=== PATIENT | female | born 1965 | race Caucasian/White ===

== ENCOUNTER 2018-03-28 19:34 | Emergency (ER) | payer MEDICAID ==
[~2018-03-28] VITALS: Ht 165.1 cm; Wt 93.0 kg
[~2018-03-28 19:34] MED LIST: BACL10TA PO; CETI-136 PO; FLUT50DI3 IH; LANS30CA56 PO; LEVO150T PO; LISI-600 PO; NIT10P TD; ROSU20TA PO
[2018-03-28 19:41] VITALS: BP 136/103
[2018-03-28] MEDS ORDERED: ASPI81TA52 PO (20:33)
[2018-03-28 20:39] LABS: INR 0.9 INR; PARTIAL THROMBOPLASTIN TIME 26 SECONDS (22-32); PROTHROMBIN TIME 9.4 SECONDS (9.0-12.0)
[2018-03-28 20:42] LABS: ALANINE AMINOTRANSFERASE 25 U/L (12-78); ALBUMIN 3.8 G/DL (3.4-5.0); ALBUMIN/GLOBULIN RATIO 0.9 (1.1-1.5); ALKALINE PHOSPHATASE 98 IU/L (46-116); ANION GAP 8 (8-16); BILIRUBIN,TOTAL 0.3 MG/DL (0.1-1.0); BLOOD UREA NITROGEN 13 MG/DL (7-18); BUN/CREATININE RATIO 14.3 (6.6-38.0); CALCIUM 8.9 MG/DL (8.5-10.1); CHLORIDE 99 MMOL/L (99-107); CREATININE 0.91 MG/DL (0.40-0.90); GLUCOSE 117 MG/DL (70-104); SODIUM 132 MMOL/L (135-145); TOTAL CARBON DIOXIDE 24.8 MMOL/L (24-32); TOTAL PROTEIN 7.9 G/DL (6.4-8.2); eGFR 65 ML/MIN
[2018-03-28 20:43] LABS: ASPARTATE AMINO TRANSFERASE 24 U/L (10-37); POTASSIUM 4.4 MMOL/L (3.5-5.1)
[2018-03-28 21:16] LABS: BASOPHILS # (AUTO) 0.1 X10'3 (0-0.2); BASOPHILS % (AUTO) 0.6 % (0-1); EOSINOPHILS # (AUTO) 0.6 X10'3 (0-0.9); EOSINOPHILS % (AUTO) 4.9 % (0-6); HEMATOCRIT 41.4 % (35.0-45.0); HEMOGLOBIN 14.3 g/dl (12.0-16.0); LYMPHOCYTES # (AUTO) 3.2 X10'3 (1.1-4.8); LYMPHOCYTES % (AUTO) 25.8 % (21-51); MEAN CORPUSCULAR HEMOGLOBIN 29.8 PG (27.0-31.0); MEAN CORPUSCULAR HGB CONC 34.4 % (33.0-36.5); MEAN CORPUSCULAR VOLUME 86.5 FL (78-98); MEAN PLATELET VOLUME 8.3 FL (7.4-10.4); MONOCYTES # (AUTO) 0.7 X10'3 (0-0.9); MONOCYTES % (AUTO) 5.4 % (2-12); NEUTROPHILS # (AUTO) 7.9 X10'3 (1.8-7.7); NEUTROPHILS % (AUTO) 63.3 % (42-75); PLATELET COUNT 314 X10'3 (140-440); RED BLOOD COUNT 4.78 X10'6 (4.20-5.60); RED CELL DISTRIBUTION WIDTH 14.6 % (11.5-14.5); WHITE BLOOD COUNT 12.5 X10'3 (4.5-11.0)
[2018-03-28 21:54] LABS: CLARITY,URINE SLIGHTLY CLOUDY (Clear); COLOR,URINE YELLOW (Yellow); GLUCOSE, URINE NEGATIVE (Neg); KETONES,URINE NEGATIVE (Neg); LEUKOCYTE ESTERASE ,URINE TRACE (Neg); NITRITES, URINE NEGATIVE (Neg); OCCULT BLOOD,URINE LARGE (Neg); PH,URINE 5.5 (4.8-8.0); PROTEIN,URINE NEGATIVE (Neg); UROBILINOGEN,URINE 0.2 E.U/dL (0.2-1.0)
[2018-03-28 21:56] LABS: UA COLLECTION TYPE CLN CATCH MIDSTREAM; URINE AMPHETAMINE SCREEN NEGATIVE (Neg); URINE BARBITUATE SCREEN NEGATIVE (Neg); URINE BENZODIAZEPINES SCREEN NEGATIVE (Neg); URINE CANNABINOID SCREEN POSITIVE (Neg); URINE COCAINE SCREEN NEGATIVE (Neg); URINE METHADONE SCREEN NEGATIVE (Neg); URINE OPIATE SCREEN NEGATIVE (Neg); URINE PHENCYCLIDINE SCREEN NEGATIVE (Neg)
[2018-03-28 22:05] LABS: BACTERIA,URINE 3+ /HPF (Neg); CAL OXALATE CRYSTALS 2+ /HPF (NEGATIVE); MUCUS STRANDS MODERATE /LPF (Neg); RBC,URINE 0-2 /HPF (0-2); SQUAMOUS EPITHELIAL CELL,UR MANY /LPF (FEW); WBC,URINE 0-4 /HPF (0-4)
== END 2018-03-28 22:19 | disposition home or self-care (01) ==
LOC: ER 19:35
DX: R55 Syncope and collapse (principal); R31.9 Hematuria, unspecified; R42 Dizziness and giddiness; R05 Cough; R73.03 Prediabetes; I25.10 Atherosclerotic heart disease of native coronary artery without angina pectoris; E78.00 Pure hypercholesterolemia, unspecified; I10 Essential (primary) hypertension; Z88.6 Allergy status to analgesic agent; Z79.899 Other long term (current) drug therapy; Z79.82 Long term (current) use of aspirin
CPT/HCPCS: 36415; 70450; 71045; 72125; 80053; 80305; 81001; 84484; 85025; 85610; 85730; 93005; 99285

== ENCOUNTER 2018-03-31 11:32 | Observation (INO) | payer MEDICAID ==
[~2018-03-31] VITALS: Ht 165.1 cm; Wt 98.3 kg
[~2018-03-31 11:32] MED LIST changes: +ASPI81TA52 PO
[2018-03-31 12:14] LABS: BASOPHILS # (AUTO) 0.1 X10'3 (0-0.2); BASOPHILS % (AUTO) 1.2 % (0-1); EOSINOPHILS # (AUTO) 0.4 X10'3 (0-0.9); EOSINOPHILS % (AUTO) 4.3 % (0-6); HEMATOCRIT 45.1 % (35.0-45.0); HEMOGLOBIN 15.3 g/dl (12.0-16.0); LYMPHOCYTES # (AUTO) 2.8 X10'3 (1.1-4.8); LYMPHOCYTES % (AUTO) 33.4 % (21-51); MEAN CORPUSCULAR HEMOGLOBIN 29.2 PG (27.0-31.0); MEAN CORPUSCULAR HGB CONC 33.8 % (33.0-36.5); MEAN CORPUSCULAR VOLUME 86.4 FL (78-98); MEAN PLATELET VOLUME 7.9 FL (7.4-10.4); MONOCYTES # (AUTO) 0.5 X10'3 (0-0.9); MONOCYTES % (AUTO) 5.8 % (2-12); NEUTROPHILS # (AUTO) 4.7 X10'3 (1.8-7.7); NEUTROPHILS % (AUTO) 55.3 % (42-75); PLATELET COUNT 333 X10'3 (140-440); RED BLOOD COUNT 5.22 X10'6 (4.20-5.60); RED CELL DISTRIBUTION WIDTH 14.4 % (11.5-14.5); WHITE BLOOD COUNT 8.4 X10'3 (4.5-11.0)
[2018-03-31 12:29] LABS: PARTIAL THROMBOPLASTIN TIME 26 SECONDS (22-32); PROTHROMBIN TIME 9.9 SECONDS (9.0-12.0)
[2018-03-31 12:30] LABS: ALANINE AMINOTRANSFERASE 23 U/L (12-78); ALBUMIN 3.7 G/DL (3.4-5.0); ALBUMIN/GLOBULIN RATIO 0.9 (1.1-1.5); ALKALINE PHOSPHATASE 91 IU/L (46-116); ANION GAP 11 (8-16); ASPARTATE AMINO TRANSFERASE 14 U/L (10-37); BILIRUBIN,TOTAL 0.3 MG/DL (0.1-1.0); BLOOD UREA NITROGEN 15 MG/DL (7-18); BUN/CREATININE RATIO 18.3 (6.6-38.0); CALCIUM 9.2 MG/DL (8.5-10.1); CHLORIDE 99 MMOL/L (99-107); CREATININE 0.82 MG/DL (0.40-0.90); GLUCOSE 131 MG/DL (70-104); POTASSIUM 3.6 MMOL/L (3.5-5.1); SODIUM 135 MMOL/L (135-145); TOTAL CARBON DIOXIDE 24.6 MMOL/L (24-32); TOTAL PROTEIN 7.8 G/DL (6.4-8.2); eGFR 73 ML/MIN
[2018-03-31] MEDS ORDERED: nitroGLYCERIN 0.4mg SUBLingual tab SL PRN ×2 (13:05→17:25)
[2018-03-31] MEDS ORDERED: magnesium hydroxide 30ml (MOM) UD suspension PO PRN ×2 (13:05→17:35)
[2018-03-31] MEDS ORDERED: morphine 2 MG/ML inj. syringe IV PRN ×2 (13:05)
[2018-03-31] MEDS ORDERED: ondansetron/PF 4mg/2ml inj IV PRN (13:05)
[2018-03-31] MEDS ORDERED: acetaminophen 325mg tablet PO PRN (13:05)
[2018-03-31] MEDS ORDERED: mag hydrox/Alum hydrox/simeth 30ml oral suspension PO PRN (13:05)
[2018-03-31] MEDS ORDERED: LEVO150T PO (13:08)
[2018-03-31] MEDS ORDERED: FURO-150 PO (13:09)
[2018-03-31] MEDS ORDERED: HYDR12.5 PO (13:10)
[2018-03-31] MEDS ORDERED: DULO20CA50 PO (13:11)
[2018-03-31] MEDS ORDERED: NITR0.4T51 SL (13:19)
[2018-03-31 14:16] LABS: HEMOGLOBIN A1C 6.5 % (4.5-6.2)
[2018-03-31 14:30] VITALS: BP 146/89
[2018-03-31] MEDS ORDERED: nitroGLYCERIN 0.4mg/hour patch TD PRN (17:25)
[2018-03-31] MEDS ORDERED: baclofen 10mg tablet PO PRN (17:25)
[2018-03-31] MEDS: normal saline 1000ml 1,000 ML IV SCH (17:56)
[2018-03-31] MEDS: docusate sod 100mg capsule PO SCH (19:38)
[2018-03-31 20:00] VITALS: BP_SYST 125; BP_SYST 130; BP_SYST 138; BP_DIAS 73; BP_DIAS 75; BP_DIAS 80
[2018-03-31 23:58] VITALS: BP 120/65
[2018-04-01 05:40] LABS: CHOL/HDL RATIO 5.6 (0.00-4.99); CHOLESTEROL 151 MG/DL (0-200); HDL CHOLESTEROL 27 MG/DL (35-60); LDL CHOLESTEROL 93 MG/DL (50-100); TRIGLYCERIDES 214 MG/DL (20-135)
[2018-04-01 07:00] VITALS: BP 130/77
[2018-04-01] MEDS ORDERED: levoTHYROXINE 75mcg tablet PO SCH (07:00)
[2018-04-01] MEDS ORDERED: pantoprazole 40mg Tablet.DR PO SCH (07:30)
[2018-04-01] MEDS: normal saline 1000ml 1,000 ML IV SCH (07:37)
[2018-04-01] MEDS ORDERED: enoxaparin 40mg/0.4ml syringe SUBCUT SCH (08:00)
[2018-04-01] MEDS ORDERED: atorvastatin 20mg tablet PO SCH (08:00)
[2018-04-01] MEDS ORDERED: duloxetine 20mg capsule.DR PO SCH (08:00)
[2018-04-01] MEDS ORDERED: aspirin 81mg tablet.DR PO SCH ×2 (08:00)
[2018-04-01] MEDS ORDERED: lisinopril 20mg tablet PO SCH (08:00)
[2018-04-01] MEDS ORDERED: HYDROchlorothiazide 12.5mg capsule PO SCH (08:00)
[2018-04-01 08:11] VITALS: BP_SYST 130; BP_SYST 133; BP_SYST 146; BP_DIAS 104; BP_DIAS 77; BP_DIAS 99
[2018-04-01] MEDS: docusate sod 100mg capsule PO SCH (09:34)
[2018-04-01 11:00] VITALS: BP 125/73
== END 2018-04-01 11:28 | disposition home or self-care (01) ==
LOC: ER 11:33 → ED HOLD 13:01 → SUR 3N 14:22
PROVIDERS: ADMIT Internal Medicine; ATTEND Internal Medicine
DX: R07.89 Other chest pain (principal); I25.10 Atherosclerotic heart disease of native coronary artery without angina pectoris; I10 Essential (primary) hypertension; E03.9 Hypothyroidism, unspecified; K21.9 Gastro-esophageal reflux disease without esophagitis; E78.5 Hyperlipidemia, unspecified; E11.9 Type 2 diabetes mellitus without complications; M79.7 Fibromyalgia; Z87.891 Personal history of nicotine dependence; Z95.5 Presence of coronary angioplasty implant and graft; Z98.82 Breast implant status; Z80.9 Family history of malignant neoplasm, unspecified
CPT/HCPCS: 36415; 71045; 80053; 80061; 83036; 84484; 85025; 85610; 85730; 87070; 93005; 96360; 96361; 99285; G0378; J7030; J1650

== ENCOUNTER 2018-04-21 12:06 | Outpatient (CLI) | payer MEDICAID ==
[2018-04-21] VITALS (18 sets, daily range): BP systolic 124–177; BP diastolic 65–99
[~2018-04-21 12:06] MED LIST changes: +DULO20CA50 PO; -FLUT50DI3 IH; +HYDR12.5 PO; +NITR0.4T51 SL
== END 2018-04-21 23:59 | disposition home or self-care (01) ==
LOC: CARD DIAG 12:06
PROVIDERS: ATTEND Physician Assistant
DX: R55 Syncope and collapse (principal); I10 Essential (primary) hypertension; E11.9 Type 2 diabetes mellitus without complications; Z79.82 Long term (current) use of aspirin; Z87.891 Personal history of nicotine dependence
CPT/HCPCS: 93660

== ENCOUNTER 2018-05-07 08:42 | Outpatient (CLI) | payer MEDICAID | END 2018-05-07 23:59 | disposition home or self-care (01) | LOC: RAD 08:42 | PROVIDERS: ATTEND Family Medicine | DX: R55 Syncope and collapse (principal); M79.7 Fibromyalgia; E03.9 Hypothyroidism, unspecified; I10 Essential (primary) hypertension; E11.9 Type 2 diabetes mellitus without complications; Z87.891 Personal history of nicotine dependence | CPT/HCPCS: 95816 ==

== ENCOUNTER 2019-08-26 07:38 | Day surgery (SDC) | payer MEDICARE, MEDICAID ==
[2019-08-23 11:15] LABS: BASOPHILS # (AUTO) 0.1 X10'3 (0-0.2); BASOPHILS % (AUTO) 0.9 % (0-1); EOSINOPHILS # (AUTO) 0.3 X10'3 (0-0.9); EOSINOPHILS % (AUTO) 4.2 % (0-6); LYMPHOCYTES # (AUTO) 2.2 X10'3 (1.1-4.8); LYMPHOCYTES % (AUTO) 34.1 % (21-51); MEAN CORPUSCULAR HEMOGLOBIN 29.4 PG (27.0-31.0); MEAN CORPUSCULAR HGB CONC 34.5 g/dL (33.0-36.5); MEAN CORPUSCULAR VOLUME 85.3 FL (78-98); MEAN PLATELET VOLUME 8.4 FL (7.4-10.4); MONOCYTES # (AUTO) 0.4 X10'3 (0-0.9); MONOCYTES % (AUTO) 5.5 % (2-12); NEUTROPHILS # (AUTO) 3.6 X10'3 (1.8-7.7); NEUTROPHILS % (AUTO) 55.3 % (42-75); PRE OP HEMATOCRIT 43.9 % (35.0-45.0); PRE OP HEMOGLOBIN 15.1 g/dL (12.0-16.0); PRE OP PLATELET COUNT 318 X10'3 (140-440); RED BLOOD COUNT 5.15 X10'6 (4.20-5.60); RED CELL DISTRIBUTION WIDTH 13.9 % (11.5-14.5)
[2019-08-23 11:23] LABS: CLARITY,URINE CLEAR (Clear); COLOR,URINE YELLOW (Yellow); GLUCOSE, URINE NEGATIVE (Neg); KETONES,URINE NEGATIVE (Neg); LEUKOCYTE ESTERASE ,URINE NEGATIVE (Neg); NITRITES, URINE NEGATIVE (Neg); OCCULT BLOOD,URINE TRACE-INTACT (Neg); PH,URINE 5.5 (4.8-8.0); PROTEIN,URINE NEGATIVE (Neg); UROBILINOGEN,URINE 0.2 E.U/dL (0.2-1.0)
[2019-08-23 11:24] LABS: UA COLLECTION TYPE CLN CATCH MIDSTREAM
[2019-08-23 11:25] LABS: PRE OP PROTIME 10.3 SECONDS (9.0-12.0)
[2019-08-23 11:39] LABS: SQUAMOUS EPITHELIAL CELL,UR MODERATE /LPF (FEW)
[2019-08-23 11:40] LABS: BACTERIA,URINE FEW /HPF (Neg); MUCUS STRANDS FEW /LPF (Neg); RBC,URINE 0-2 /HPF (0-2); WBC,URINE 0-4 /HPF (0-4)
[2019-08-23 11:43] LABS: ALBUMIN 4.2 G/DL (3.4-5.0); ALBUMIN/GLOBULIN RATIO 1.2 (1.1-1.5); ALKALINE PHOSPHATASE 63 IU/L (46-116); BLOOD UREA NITROGEN 15 MG/DL (7-18); BUN/CREATININE RATIO 16.1 (6.6-38.0); CALCIUM 9.5 MG/DL (8.5-10.1); CHLORIDE 101 MMOL/L (99-107); CREATININE 0.93 MG/DL (0.40-0.90); PRE OP ANION GAP 9 (8-16); PRE OP AST 66 U/L (10-37); PRE OP BILIRUB, TOTAL 0.3 MG/DL (0.0-1.0); PRE OP GLUCOSE 142 MG/DL (70-104); PRE OP SODIUM 136 MMOL/L (135-145); TOTAL CARBON DIOXIDE 25.9 MMOL/L (24-32); TOTAL PROTEIN 7.8 G/DL (6.4-8.2); eGFR 63 ML/MIN
[2019-08-23 11:47] LABS: PRE OP ALT 101 U/L (30-65)
[~2019-08-26] VITALS: Ht 165.1 cm; Wt 105.0 kg
[~2019-08-26 07:38] MED LIST changes: -CETI-136 PO; +DEXL30CA3 PO; -DULO20CA50 PO; +FENO145T38 PO; -LANS30CA56 PO; +LEVO137T2 PO; -LEVO150T PO; +METF500T PO; +MONT10TA26 PO; -NIT10P TD; -ROSU20TA PO; +ROSU20TA2 PO; +ceFOXitin sod/dextrose 2g/50ml 50 ML IV ONE; +famotidine 20mg tablet PO ONE; +meperidine/PF 25mg/ml syringe IV PRN; +morphine 2 MG/ML inj. syringe IV PRN; +morphine 4 MG/ML inj SYRINge IV PRN; +ondansetron/PF 4mg/2ml inj IV PRN; +proCHLORperazine 10 MG/2 ml inj IV PRN; +ringers solution, lacted 1,000 ML IV SCH
[2019-08-26 07:45] VITALS: BP 123/75
[2019-08-26] MEDS ORDERED: sevoflurane 250ml liquid IH ONE (10:35)
[2019-08-26] MEDS ORDERED: dexamethasone sod phosphate 10mg/ml inj ONE (10:35)
[2019-08-26] MEDS ORDERED: fentaNYL/PF 50MCG/1 ML 2ML syringe ONE (10:46)
[2019-08-26] MEDS ORDERED: midazolam 2 mg/2 ml injection ONE (10:46)
[2019-08-26] MEDS ORDERED: LIDOcaine 2% (20mg/ml) 5ml vial ONE (10:54)
[2019-08-26] MEDS ORDERED: propofol inj 20 ML IV ONE (10:54)
[2019-08-26] MEDS ORDERED: ondansetron/PF 4mg/2ml inj ONE (11:07)
[2019-08-26] MEDS ORDERED: ketorolac trometh. 30mg/ml inj. ONE (11:07)
[2019-08-26 11:15] VITALS: BP 132/83
--- NOTE | 2019-08-26 11:15 | NUR ---
Received from OR via , accompanied by Anesthesiologist TRIP and report given by Anesthesiolgist. AWAKE IN NO RESP DISTRESS SKIN WARM AND DRY HOB ELEVATED ABD SOFT RUFINA PAD DI. NO CO PAIN.
[2019-08-26 11:25] VITALS: BP 122/83
[2019-08-26 11:35] VITALS: BP 123/69
[2019-08-26 11:45] VITALS: BP 110/75
[2019-08-26 11:55] VITALS: BP 115/74
--- NOTE | 2019-08-26 12:05 | NUR ---
AWAKE VS WNL, NO CO PAIN, MIN VAG SSD, RUFINA PAD ON. VOIDED. DISCH INSTR GIVEN TO PT AND UNDERSTOOD. HOME WITH .
== END 2019-08-26 12:05 | disposition home or self-care (01) ==
LOC: PAS 07:38
PROVIDERS: ATTEND Obstetrics & Gynecology
DX: N95.0 Postmenopausal bleeding (principal); N88.2 Stricture and stenosis of cervix uteri; Z88.5 Allergy status to narcotic agent; Z88.8 Allergy status to other drugs, medicaments and biological substances; Z79.899 Other long term (current) drug therapy
CPT/HCPCS: 36415; 58120; 80053; 81001; 82948; 85025; 85610; 85730; 86885; 86900; 86901; J0694; J1100; J1885; J2001; J2250; J2405; J2704; J3010; J7030; J7120; A4355; A4618; A6258

== ENCOUNTER 2019-10-04 05:08 | Day surgery (SDC) | payer MEDICARE, MEDICAID ==
[2019-10-01 16:13] LABS: BASOPHILS % (AUTO) 0.2 % (0-1); EOSINOPHILS # (AUTO) 0.3 X10'3 (0-0.9); EOSINOPHILS % (AUTO) 3.1 % (0-6); LYMPHOCYTES # (AUTO) 2.9 X10'3 (1.1-4.8); LYMPHOCYTES % (AUTO) 33.8 % (21-51); MEAN CORPUSCULAR HEMOGLOBIN 28.9 PG (27.0-31.0); MEAN CORPUSCULAR HGB CONC 34.1 g/dL (33.0-36.5); MEAN CORPUSCULAR VOLUME 84.8 FL (78-98); MEAN PLATELET VOLUME 8.6 FL (7.4-10.4); MONOCYTES # (AUTO) 0.5 X10'3 (0-0.9); MONOCYTES % (AUTO) 5.3 % (2-12); NEUTROPHILS # (AUTO) 4.9 X10'3 (1.8-7.7); NEUTROPHILS % (AUTO) 57.6 % (42-75); PRE OP HEMATOCRIT 43.4 % (35.0-45.0); PRE OP HEMOGLOBIN 14.8 g/dL (12.0-16.0); PRE OP PLATELET COUNT 334 X10'3 (140-440); RED BLOOD COUNT 5.12 X10'6 (4.20-5.60); RED CELL DISTRIBUTION WIDTH 13.6 % (11.5-14.5)
[2019-10-01 16:26] LABS: HCG SERUM QL NEGATIVE
[2019-10-01 16:30] LABS: PRE OP PROTIME 10.3 SECONDS (9.0-12.0)
[2019-10-01 16:31] LABS: ALBUMIN 4.4 G/DL (3.4-5.0); ALBUMIN/GLOBULIN RATIO 1.3 (1.1-1.5); ALKALINE PHOSPHATASE 63 IU/L (46-116); BLOOD UREA NITROGEN 15 MG/DL (7-18); BUN/CREATININE RATIO 14.3 (6.6-38.0); CALCIUM 9.7 MG/DL (8.5-10.1); CHLORIDE 101 MMOL/L (99-107); CREATININE 1.05 MG/DL (0.40-0.90); PRE OP ANION GAP 10 (8-16); PRE OP AST 46 U/L (10-37); PRE OP BILIRUB, TOTAL 0.2 MG/DL (0.0-1.0); PRE OP GLUCOSE 105 MG/DL (70-104); PRE OP POTASSIUM 3.6 MMOL/L (3.4-5.1); PRE OP SODIUM 138 MMOL/L (135-145); TOTAL CARBON DIOXIDE 26.8 MMOL/L (24-32); TOTAL PROTEIN 7.9 G/DL (6.4-8.2); eGFR 55 ML/MIN
[2019-10-01 16:33] LABS: PRE OP ALT 89 U/L (30-65)
[2019-10-04] VITALS (23 sets, daily range): BP systolic 122–148; BP diastolic 61–100
[~2019-10-04] VITALS: Ht 165.1 cm; Wt 60.8 kg
[~2019-10-04 05:08] MED LIST changes: -NITR0.4T51 SL; -ceFOXitin sod/dextrose 2g/50ml 50 ML IV ONE; -famotidine 20mg tablet PO ONE; -meperidine/PF 25mg/ml syringe IV PRN; -morphine 2 MG/ML inj. syringe IV PRN; -morphine 4 MG/ML inj SYRINge IV PRN; -ondansetron/PF 4mg/2ml inj IV PRN; -proCHLORperazine 10 MG/2 ml inj IV PRN
[2019-10-04] MEDS ORDERED: ceFOXitin sod/dextrose 2g/50ml 50 ML IV ONE (05:30)
[2019-10-04] MEDS ORDERED: famotidine 20mg tablet PO ONE (05:30)
[2019-10-04] MEDS ORDERED: LIDOcaine 1% (10mg/ml) 2ml vial ONE (05:56)
[2019-10-04] MEDS ORDERED: BUPIVAcaine/PF 2.5 mg/ml (0.25%) 30ml vial ONE (06:43)
[2019-10-04] MEDS ORDERED: sevoflurane 250ml liquid IH ONE (07:08)
[2019-10-04] MEDS ORDERED: fentaNYL /PF 50mcg/ml 5ml ampule ONE (07:11)
[2019-10-04] MEDS ORDERED: midazolam 2 mg/2 ml injection ONE (07:11)
[2019-10-04] MEDS ORDERED: ringers solution, lacted 1,000 ML IV SCH (08:32)
[2019-10-04] MEDS ORDERED: proCHLORperazine 10 MG/2 ml inj IV PRN (08:35)
[2019-10-04] MEDS ORDERED: ondansetron/PF 4mg/2ml inj IV PRN (08:35)
[2019-10-04] MEDS ORDERED: morphine 4 MG/ML inj SYRINge IV PRN (08:35)
[2019-10-04] MEDS ORDERED: morphine 2 MG/ML inj. syringe IV PRN (08:35)
[2019-10-04] MEDS ORDERED: meperidine/PF 25mg/ml syringe IV PRN ×2 (08:35)
[2019-10-04] MEDS ORDERED: dexamethasone sod phosphate 4mg/ml inj. ONE (10:27)
[2019-10-04] MEDS ORDERED: ondansetron/PF 4mg/2ml inj ONE (10:27)
[2019-10-04] MEDS ORDERED: rocuronium 10mg/ml inj IV ONE ×2 (10:28)
[2019-10-04] MEDS ORDERED: propofol inj 20 ML IV ONE (10:28)
[2019-10-04] MEDS ORDERED: sugammadex 200mg/2ml injection IV ONE (10:55)
--- NOTE | 2019-10-04 11:06 | NUR ---
RECIEVED FROM OR VIA [facility] ACCOMPANIED BY DR GIBSON ANESTHESIA, REPORT GIVEN . PT DROWSY YET AROUSES, WITH NO COMPLAINT OF PAIN AT THIS TIME.20 GAUGE PIV L HAND PATENT AND RUNNING LR AT 100 ML/HR. ABD PUNCTURE X 4 CDI WITH DERMABOND ONLY TO SITES. DANNA ALBERTO, ANNE SOFT, SKIN WARM AND DRY. Addendum: 10/04/19 at 1124 by Scarlett Dow RN Amended: Links added.
--- NOTE | 2019-10-04 11:13 | NUR ---
DR GIBSON REQUESTED BS, BS 295 AT 1113, DR GIBSON MADE AWARE.
[2019-10-04] MEDS: meperidine/PF 25mg/ml syringe IV PRN ×4 (11:25→12:43)
[2019-10-04] MEDS ORDERED: cefazolin/dext.iso 2gm/100ml 100 ML IV ONE (11:55)
--- NOTE | 2019-10-04 14:26 | NUR ---
PT A&O, SKIN PINK AND WARM, VSS, PAIN LEVEL AT 5, ABLE TO WALK, URINATE, TOLERATES FLUIDS, D/C CRITERIA MET. 20 GAUGE PIV L HAND DC/D CATH TIP INTACT. DISCHARGE INSTRUCTIONS GIVEN WITH VERBALIZED UNDERSTANDING. TRANSFERRED VIA WHEELCHAIR TO , TO HOME IN PRIVATE VEHICLE.
== END 2019-10-04 14:26 | disposition home or self-care (01) ==
LOC: PAS 05:08
PROVIDERS: ATTEND Obstetrics & Gynecology
DX: N95.0 Postmenopausal bleeding (principal); N83.201 Unspecified ovarian cyst, right side; N93.8 Other specified abnormal uterine and vaginal bleeding; D26.0 Other benign neoplasm of cervix uteri; E03.9 Hypothyroidism, unspecified; R10.2 Pelvic and perineal pain; F32.9 Major depressive disorder, single episode, unspecified; K66.0 Peritoneal adhesions (postprocedural) (postinfection); Z98.51 Tubal ligation status; Z79.899 Other long term (current) drug therapy; Z88.8 Allergy status to other drugs, medicaments and biological substances; Z79.82 Long term (current) use of aspirin; I10 Essential (primary) hypertension; Z98.890 Other specified postprocedural states; Z87.891 Personal history of nicotine dependence; Z95.5 Presence of coronary angioplasty implant and graft
CPT/HCPCS: 36415; 58571; 80053; 82948; 84703; 85025; 85610; 85730; 86885; 86900; 86901; C1758; C9399; J0694; J0780; J1100; J2001; J2175; J2250; J2270; J2405; J2704; J3010; J3490; J7120; A4355; A4618; A7000

== ENCOUNTER 2019-10-21 01:41 | Emergency (ER) | payer MEDICARE, MEDICAID ==
[~2019-10-21] VITALS: Ht 165.1 cm; Wt 104.0 kg
[~2019-10-21 01:41] MED LIST changes: -ringers solution, lacted 1,000 ML IV SCH
[2019-10-21 01:48] VITALS: BP 137/89
== END 2019-10-21 02:32 | disposition home or self-care (01) ==
LOC: ER 01:43
DX: N99.820 Postprocedural hemorrhage of a genitourinary system organ or structure following a genitourinary system procedure (principal); N93.8 Other specified abnormal uterine and vaginal bleeding; I25.10 Atherosclerotic heart disease of native coronary artery without angina pectoris; E78.00 Pure hypercholesterolemia, unspecified; I10 Essential (primary) hypertension; F12.90 Cannabis use, unspecified, uncomplicated; Z90.710 Acquired absence of both cervix and uterus; Z95.5 Presence of coronary angioplasty implant and graft; Z98.890 Other specified postprocedural states; Z88.6 Allergy status to analgesic agent; Z88.5 Allergy status to narcotic agent; Z79.82 Long term (current) use of aspirin; Z79.899 Other long term (current) drug therapy
CPT/HCPCS: 99281; 99283; 99284

== ENCOUNTER 2023-04-19 08:55 | Emergency (ER) | payer MEDICARE, MEDICAID ==
[~2023-04-19] VITALS: Ht 165.1 cm; Wt 104.5 kg
[~2023-04-19 08:55] MED LIST changes: -LISI-600 PO; +LISI20TA28 PO; +MONT-40 PO; -MONT10TA26 PO
[2023-04-19 10:24] LABS: URINE HCG NEGATIVE (NEG)
[2023-04-19 10:30] LABS: BILIRUBIN,URINE NEGATIVE (Neg); CLARITY,URINE SLIGHTLY CLOUDY (Clear); COLOR,URINE YELLOW (Yellow); GLUCOSE, URINE NEGATIVE (Neg); KETONES,URINE NEGATIVE (Neg); LEUKOCYTE ESTERASE ,URINE NEGATIVE (Neg); NITRITES, URINE NEGATIVE (Neg); OCCULT BLOOD,URINE NEGATIVE (Neg); PH,URINE 6.5 (4.8-8.0); PROTEIN,URINE NEGATIVE (Neg); UROBILINOGEN,URINE 0.2 E.U/dL (0.2-1.0)
[2023-04-19 10:34] LABS: UA COLLECTION TYPE CLN CATCH MIDSTREAM
[2023-04-19 10:36] LABS: BACTERIA,URINE FEW /HPF (Neg); MUCUS STRANDS FEW /LPF (Neg); RBC,URINE 0-2 /HPF (0-2); SQUAMOUS EPITHELIAL CELL,UR MODERATE /LPF (FEW); WBC,URINE 0-4 /HPF (0-4); YEAST FEW /HPF (NEGATIVE)
[2023-04-19] MEDS ORDERED: dexamethasone sod phosphate 10mg/ml inj IM STA (11:24)
[2023-04-19] MEDS ORDERED: ketorolac trometh inj. 60 MG/2 ML VIAL IM ONE (11:25)
[2023-04-19] MEDS ORDERED: LIDOcaine 5% patch TP ONE (11:25)
[2023-04-19] MEDS ORDERED: DEC4T PO (12:42)
[2023-04-19 13:00] VITALS: BP 144/89; PULSE 70; RESP 16; TEMP 97.6; O2SAT 97
--- NOTE | 2023-04-19 13:36 | NUR ---
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 PT IN STABLE CONDITION.
== END 2023-04-19 13:44 | disposition home or self-care (01) ==
LOC: ER 08:56
DX: M54.50 Low back pain, unspecified (principal); G89.29 Other chronic pain; I25.10 Atherosclerotic heart disease of native coronary artery without angina pectoris; E78.00 Pure hypercholesterolemia, unspecified; I10 Essential (primary) hypertension; F12.90 Cannabis use, unspecified, uncomplicated; Z87.891 Personal history of nicotine dependence; Z90.710 Acquired absence of both cervix and uterus; Z88.8 Allergy status to other drugs, medicaments and biological substances; Z88.1 Allergy status to other antibiotic agents; Z79.82 Long term (current) use of aspirin; Z79.899 Other long term (current) drug therapy
CPT/HCPCS: 72100; 81001; 81025; 96372; 99284; J1100; J1885